=== PATIENT | female | born 1970 | race Caucasian/White ===

== ENCOUNTER → 2017-02-20 | Outpatient (CLI) | payer BC ==
--- NOTE | 2017-02-20 10:24 | KCIC ---
Indication: Chronic sinusitis and loss of smell. Axial imaging through the paranasal sinuses was performed without contrast. Sagittal and coronal reformations were also performed. One or more of the following individualized dose reduction techniques were utilized for this examination: 1. Automated exposure control 2. Adjustment of the mA and/or kV according to patient size 3. Use of iterative reconstruction technique No prior studies are available for comparison. The frontal sinus is clear. The ethmoid air cells and sphenoid sinus are clear. The right maxillary sinus is clear. There appears to be a mucous retention cyst or polyp within the inferior left maxillary sinus. The ostiomeatal complexes are patent bilaterally. 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 There is nasal septal deviation to the left in the upper portion and to the right in the lower portion. The mastoids are well aerated. IMPRESSION: 1. No evidence of sinusitis. There is a mucous retention cyst or polyp in the left maxillary sinus. Electronically signed by: Juan Carlos Joyner MD (02/20/2017 10:20 AM) [id number]
== END | disposition home or self-care (01) ==
LOC: KCIC CT 08:27
PROVIDERS: ATTEND Otolaryngology
DX: J34.1 Cyst and mucocele of nose and nasal sinus (principal)
CPT/HCPCS: 70486